=== PATIENT | female | born 1970 | race African-American/Black ===

== ENCOUNTER 2019-07-14 14:38 | Emergency (ER) | payer MEDICARE, OTHER ==
[2019-07-14] MEDS ORDERED: Acetaminophen 500 MG TAB ONE (15:35)
--- NOTE | 2019-07-14 16:23 | RAD ---
XR Chest 1 View Portable History: Reason For Study Comparison: Radiograph July 2014 Findings: The lungs are clear. No pneumothorax. No effusion. Cardiac silhouette and mediastinal conto urs are within normal limits. No acute osseous abnormality. Impression: No acute intrathoracic abnormality.
== END 2019-07-14 17:35 | disposition home or self-care (01) ==
LOC: MADERS 14:38
DX: J22 Unspecified acute lower respiratory infection (principal); I10 Essential (primary) hypertension; F17.210 Nicotine dependence, cigarettes, uncomplicated
CPT/HCPCS: 71045; 87804; U0001